=== PATIENT | male | born 1955 | race Caucasian/White ===

== ENCOUNTER 2018-10-18 09:01 | Emergency (ER) | payer OTHER, MEDICAID ==
[2018-10-18] MEDS ORDERED: ASPIRIN 81 MG CHEWABLE TAB ONE (09:05)
--- NOTE | 2018-10-18 09:31 | EDPHY ---
H & P Stated Complaint: States last week rt chest discomfort,this past week intermittent hr racing Time Seen by Provider: 10/18/18 09:04 HPI/ROS: This patient describes substernal chest pressure the last admitted to time has been intermittent over the past few days with no clear exacerbating or alleviating factors. He has also noted a feeling of a pounding heart at times most recently at 3:00 a.m. This morning. He checks his pulse during these episodes and notes a heart rate between 75 and 85 but feels that they are heart is simply pounding harder than usual and he can feel it in his chest. He admits associated anxiety and is concerned about a potential heart problem. He main appointment to see his civil engineer helper-Dr. Tapia at [facility] for tomorrow at 11:00 a.m. But due to ongoing intermittent chest pressure and feeling of pounding heart, he came into the emergency department this morning for further evaluation. He arrives with his male partner by private vehicle. ROS: Constitutional: No recent fevers HEENT: No URI symptoms Pulmonary: No shortness of breath. No coughing. Cardiovascular: He denies any leg swelling or pain. No lightheadedness. No radiation of the pain from the substernal region. Currently has no chest pressure. GI: No abdominal pain. He has had increase in her acid reflux symptoms characterized as heartburn and belching over the past few days. Currently he does not have heartburn. He reports normal appetite. No nausea or vomiting. Normal bowel movements. : No complaints new line integumentary: No pallor or diaphoresis noted by patient or his partner Endocrine: No diaphoresis Psychiatric: He again admits anxiety and has had panic attacks in the past that he thought might have been caused by heart condition. Denies any chronic anxiety or depression. 10 point review of symptoms is performed and otherwise negative with exception of pertinent positives and negatives listed in HPI and ROS Source: Patient Exam Limitations: No limitations - Personal History Tetanus Vaccine Date: < 10 YEARS - Medical/Surgical History PMH: HIV positive with normal CD4 counts Normal EKG and cardiac echo [address] Tapia Borderline hypertension Hx Asthma: No Hx Chronic Respiratory Disease: No Hx Diabetes: No Hx Cardiac Disease: No Hx Renal Disease: No Hx Cirrhosis: No Hx Alcoholism: No Hx HIV/AIDS: Yes Hx Splenectomy or Spleen Trauma: No Other PMH: Med hx-+HIV. Surg- - Family History Significant Family History: Heart disease (Patient is sister with an PA in her 40s) - Social History Smoking Status: Never smoked Alcohol Use: Occasionally Drug Use: Marijuana (He reports marijuana use about once a week) - Physical Exam Exam: General Appearance: Alert, no distress. Eyes: Pupils equal and round no pallor or injection. ENT, Mouth: Mucous membranes moist. Respiratory: There are no retractions, lungs are clear to auscultation. Cardiovascular: Regular rate and rhythm. No murmur gallop or rub. No JVD. No peripheral edema. No chest wall tenderness he has symmetric 2+ radialis pulses bilaterally no JVD. Gastrointestinal: Abdomen is soft and nontender, no masses, bowel sounds normal. Neurological: GCS 15 Skin: Warm and dry, no rashes. Musculoskeletal: Neck is supple nontender. Extremities are symmetrical, full range of motion. Psychiatric: Patient mildly anxious but otherwise mood and affect are normal DIFFERENTIAL DIAGNOSIS: After history and physical exam differential diagnosis was considered for acid reflux, hiatal hernia, myocardial ischemic disease, pulmonary embolism, pneumothorax, pneumonia, anxiety Constitutional: Initial Vital Signs Temperature (C) 36.4 C 10/18/18 09:09 Heart Rate 93 10/18/18 09:09 Respiratory Rate 20 10/18/18 09:09 Blood Pressure 181/100 H 10/18/18 09:09 O2 Sat (%) 96 10/18/18 09:09 O2 Delivery Mode Room Air Allergies/Adverse Reactions: No Known Allergies Allergy (Unverified 09/13/13 14:37) Home Medications: Medication Instructions Recorded Descovy 200-25 mg Tablet 10/18/18 Dolutegravir Sodium [Tivicay] 10/18/18 Propranolol HCl [Inderal 10mg (*)] 10 - 30 mg PO BID PRN #30 tab 10/18/18 Medical Decision Making - Diagnostics EKG Interpretation: 12 lead EKG performed at 9:08 a.m. Reveals sinus rhythm at 82 Intervals: P R of 172, QRS of 93, QTC 434 [place]: P of 25, QRS of -20, T of 4 ST segments: Normal throughout Overall assessment sinus rhythm with borderline left axis deviation Imaging Results: Imaging Impressions Chest X-Ray 10/18/18 09:45 Impression: Normal. Two view chest x-ray: Normal by my interpretation Imaging: I viewed and interpreted images myself ED Course/Re-evaluation: Shortly after arrival patient's chest discomfort resolved without intervention. He remained pain-free while in the ED. Patient did have recurrence of subtle chest pressure well emergency department that improved with Maalox and Levsin. Discussion: Patient with anxiety associated with atypical chest pain. He had a negative workup today in terms of normal troponin and elected not to have a repeat troponin. His D-dimer is also normal, chest x-ray normal and his symptoms resolved with treatment of GERD. I suspect that his symptoms are attributable primarily to GERD and anxiety. He has a close follow up with Cardiology tomorrow declined admission. I reviewed the heart form with him in some detail in feels comfortable in proceeding home with close outpatient follow -up. He understands need to return emergency department should he developed any significant worsening of his symptoms or onset of additional symptoms despite treatment plan of antacids and propranolol for anxiety/hypertension. - Data Points Laboratory Results: 10/18/18 10/18/18 09:21 09:17 POC Sodium 144 mEq/L mEq/L (135-145) POC Potassium 3.7 mEq/L mEq/L (3.3-5.0) POC Chloride 102.0 mEq/L mEq/L (97-110) POC Total CO2 26 mEq/L mEq/L (22-31) POC BUN 14 mg/dL mg/dL (7-23) POC Creatinine 0.9 mg/dL mg/dL (0.7-1.3) POC Glucose 115 mg/dL H mg/dL (70-100) POC Calcium 9.8 mg/dL mg/dL (8.5-10.4) POC Troponin I 0.00 ng/mL ng/mL (0.00-0.08) Patient's CBC is normal POC D-dimer is less than 100 Medications Given: Discontinued Medications Al Hydroxide/Mg Hydroxide (Maalox Susp) 30 ml PO EDNOW ONE Stop: 10/18/18 10:16 Last Admin: 10/18/18 10:21 Dose: 30 ml Hyoscyamine Sulfate (Levsin, Hyomax-Sl) 0.125 mg SL EDNOW ONE Stop: 10/18/18 10:16 Last Admin: 10/18/18 10:20 Dose: 0.125 mg Point of Care Test Results: CBC CBC Collection Date 10/18/18 CBC Collection Time 09:11 WBC 7.0 RBC 5.24 HGB 17.6 HCT 49.1 PLT 246 Neut # 4.5 Neut 63.9 LYMPH # 1.9 LYMPH 27.3 Other WBC # 0.6 Other WBC 8.8 MCV 93.7 Chemistry 10/18/18 10/18/18 09:21 09:17 POC Sodium 144 mEq/L mEq/L (135-145) POC Potassium 3.7 mEq/L mEq/L (3.3-5.0) POC Chloride 102.0 mEq/L mEq/L (97-110) POC Total CO2 26 mEq/L mEq/L (22-31) POC BUN 14 mg/dL mg/dL (7-23) POC Creatinine 0.9 mg/dL mg/dL (0.7-1.3) POC Glucose 115 mg/dL H mg/dL (70-100) POC Calcium 9.8 mg/dL mg/dL (8.5-10.4) POC Troponin I 0.00 ng/mL ng/mL (0.00-0.08) Basic Metabolic Panel BMP Collection Date 10/18/18 BMP Collection Time 09:11 D-Dimer D-Dimer Collection Date 10/18/18 D-Dimer Collection Time 09:11 D-Dimer (ng/ml) < 100 Departure - Departure Disposition: Home, Routine, Self-Care Clinical Impression: Anxiety Chest pain Qualifiers: Chest pain type: precordial pain Qualified Code(s): R07.2 - Precordial pain GERD (gastroesophageal reflux disease) Qualifiers: Esophagitis presence: esophagitis presence not specified Qualified Code(s): K21.9 - Gastro-esophageal reflux disease without esophagitis Hypertension Qualifiers: Hypertension type: essential hypertension Qualified Code(s): I10 - Essential ( primary) hypertension Condition: Good Instructions: Propranolol (By mouth), Chest Pain (ED), Gastroesophageal Reflux Disease (ED) Additional Instructions: Diagnoses: 1. Chest pain 2. GERD 3. Anxiety 4. Hypertension Plan: Consider [id number]-[id number] acid usama such as Prilosec or an H2 usama. [place] diet until your reflux symptoms diminish Resume exercise Try propranolol for anxiety as prescribed. Follow-up tomorrow with Dr. Tapia-cardiology Return emergency department if he develops any significant worsening of your symptoms despite the treatment plan. Referrals: Doreen Fuller MD [Primary Care Provider] - As per Instructions Prescriptions: Propranolol HCl [Inderal 10mg (*)] 10 - 30 mg PO BID PRN #30 tab PRN Reason: Anxiety
[2018-10-18] MEDS ORDERED: HYOSCYAMINE SULFATE 0.125 MG TAB SL ONE (10:15)
[2018-10-18] MEDS ORDERED: MAG HYDROX/AL HYDROX/SIMETH 30 ML UDCUP PO ONE (10:15)
[2018-10-18 10:36] VITALS: BP 160/98
--- NOTE | 2018-10-18 11:04 | CPEKG ---
Test Reason : OPEN Blood Pressure : / mmHG Vent. Rate : 082 BPM Atrial Rate : 082 BPM P-R Int : 172 ms QRS Dur : 093 ms QT Int : 371 ms P-R-T Axes : 025 -20 004 degrees QTc Int : 434 ms Sinus rhythm Borderline left axis deviation Confirmed by Daniel Lancaster [id number]) on 10/18/2018 11:04:07 AM Referred By: Confirmed By:Daniel Lancaster
== END 2018-10-18 10:58 | disposition home or self-care (01) ==
LOC: CED 09:01
DX: F41.9 Anxiety disorder, unspecified (principal); R07.2 Precordial pain; K21.9 Gastro-esophageal reflux disease without esophagitis; I10 Essential (primary) hypertension; Z21 Asymptomatic human immunodeficiency virus [HIV] infection status
CPT/HCPCS: 71046-PO; 80048-PO; 84484-PO

== ENCOUNTER → 2018-10-26 | Outpatient (CLI) | payer MEDICAID | LOC: FIMAGING 08:13 | PROVIDERS: ATTEND Internal Medicine | DX: R13.10 Dysphagia, unspecified (principal); K21.9 Gastro-esophageal reflux disease without esophagitis; K44.9 Diaphragmatic hernia without obstruction or gangrene ==